=== PATIENT | male | born 1945 | race Hispanic/Latino ===

== ENCOUNTER 2020-03-26 01:25 | Inpatient (IN) | payer MEDICARE ==
[2020-03-26] VITALS (19 sets, daily range): BP systolic 94–135; BP diastolic 50–69
[~2020-03-26] VITALS: Ht 162.6 cm; Wt 68.1 kg
[2020-03-26] MEDS ORDERED: SODIUM CHLORIDE 0.9% 1000ML 1,000 ML IV STA (01:42)
[2020-03-26] MEDS ORDERED: ACETAMINOPHEN 325 MG TAB PO ONE (01:45)
[2020-03-26] MEDS ORDERED: ONDANSETRON HCL INJ 2MG/ML 2ML 2 MG/ML VIAL IV ONE (01:45)
[2020-03-26] MEDS ORDERED: CEFTRIAXONE SOD 1 GM VIAL IV ONE (01:45)
[2020-03-26] MEDS ORDERED: ACETAMINOPHEN500 MG PO (01:52)
[2020-03-26] MEDS ORDERED: CEFDINIR300 MG PO (01:52)
[2020-03-26] MEDS ORDERED: ZOFRAN4 MG PO (01:52)
[2020-03-26] MEDS ORDERED: CEFTRIAXONE SOD 1 GM/NS 50 ML 50 ML IV ONE ×2 (02:00)
[2020-03-26] MEDS ORDERED: SODIUM CHLORIDE 0.9% 1000ML 1,000 ML ONE (02:00)
[2020-03-26] MEDS ORDERED: DIPHENHYDRAMINE HCL INJ 50 MG/ML VIAL IV PRN (02:45)
[2020-03-26] MEDS ORDERED: ONDANSETRON HCL INJ 2MG/ML 2ML 2 MG/ML VIAL IV PRN (02:45)
[2020-03-26] MEDS ORDERED: FAMOTIDINE 20 MG TAB PO SCH (02:45)
[2020-03-26] MEDS ORDERED: ACETAMINOPHEN 325 MG TAB PO PRN (02:45)
[2020-03-26] MEDS ORDERED: ASPIRIN 81 MG CHEW TAB PO ONE (02:45)
[2020-03-26] MEDS ORDERED: ENOXAPARIN SODIUM INJ 100 MG/ML SYR SC ONE (03:00)
[2020-03-26] MEDS ORDERED: FAMOTIDINE 20 MG/2 ML VIAL IV ONE (03:01)
[2020-03-26] MEDS ORDERED: ASPIRIN 325 MG TAB ONE (03:01)
[2020-03-26] MEDS ORDERED: FAMOTIDINE 20 MG TAB PO ONE (03:15)
[2020-03-26] MEDS: METOPROLOL TARTRATE 25 MG TAB PO SCH ×2 (03:26→14:40)
[2020-03-26] MEDS ORDERED: ALLOPURINOL100 MG PO (03:45)
[2020-03-26] MEDS ORDERED: CARVEDILOL12.5 MG PO (03:45)
[2020-03-26] MEDS ORDERED: ATORVASTATIN CA20 MG PO (03:45)
[2020-03-26] MEDS ORDERED: XANAX0.5 MG PO (03:45)
[2020-03-26] MEDS ORDERED: LEXAPRO10 MG PO (03:45)
[2020-03-26] MEDS ORDERED: COLCRYS0.6 MG PO (03:45)
[2020-03-26] MEDS ORDERED: AMLODIPINE BESY10 MG PO (03:45)
[2020-03-26] MEDS: LACTATED RINGER'S 1,000 ML IV SCH ×3 (04:20→22:32)
[2020-03-26 04:42] LABS: BASOPHILS # (AUTO) 0.1 (0.0-0.1); BASOPHILS % 0.3 % (0.0-1.0); EOSINOPHILS # (AUTO) 0.1 (0.0-0.4); EOSINOPHILS % 0.6 % (0.0-6.0); HEMATOCRIT 36.7 % (38.2-49.6); HEMOGLOBIN 12.2 g/dL (14.0-18.0); LYMPHOCYTES # (AUTO) 1.1 (1.0-3.2); LYMPHOCYTES % 5.4 % (18.0-39.1); MEAN CORPUSCULAR HGB CONC 33.2 g/dL (31-35); MEAN CORPUSCULAR VOLUME 87.2 fL (81-99); MONOCYTES # (AUTO) 1.9 (0.2-0.8); MONOCYTES % 9.4 % (4.4-11.3); NEUTROPHILS # (AUTO) 17.2 (2.1-6.9); NEUTROPHILS % 83.5 % (38.7-80.0); PLATELET COUNT 125 x10e3/uL (140-360); RED BLOOD COUNT 4.21 x10e6/uL (4.3-5.7); RED CELL DISTRIBUTION WIDTH 13.6 % (11.7-14.4)
[2020-03-26 05:03] LABS: ALBUMIN 3.1 g/dL (3.5-5.0); ALBUMIN/GLOBULIN RATIO 0.8 (0.8-2.0); ANION GAP 17.2 mmol/L (8-16); CALCIUM 9.2 mg/dL (8.4-10.2); CREATININE, SERUM 2.34 mg/dL (0.72-1.25); POTASSIUM 3.2 mmol/L (3.5-5.1)
[2020-03-26 05:23] LABS: CREATINE KINASE MB 1.5 ng/mL (0-5.0)
[2020-03-26] MEDS: ASPIRIN 325 MG TAB EC PO SCH (08:01)
[2020-03-26] MEDS: PIPER-TAZ 3.375 GM 50 ML IV SCH ×2 (11:05→20:31)
[2020-03-26 11:07] LABS: CREATINE KINASE MB 1.6 ng/mL (0-5.0)
[2020-03-26] MEDS ORDERED: CEFTRIAXONE SOD 1 GM VIAL IV SCH (14:00)
[2020-03-26] MEDS ORDERED: POTASSIUM CHLORIDE 20 MEQ TAB CR PO ONE ×2 (15:00→19:20)
[2020-03-26 16:32] LABS: BASOPHILS # (AUTO) 0.1 (0.0-0.1); BASOPHILS % 0.3 % (0.0-1.0); EOSINOPHILS # (AUTO) 0.1 (0.0-0.4); EOSINOPHILS % 0.7 % (0.0-6.0); HEMATOCRIT 34.8 % (38.2-49.6); HEMOGLOBIN 11.7 g/dL (14.0-18.0); LYMPHOCYTES # (AUTO) 1.1 (1.0-3.2); LYMPHOCYTES % 7.3 % (18.0-39.1); MEAN CORPUSCULAR HEMOGLOBIN 29.3 pg (28-32); MEAN CORPUSCULAR HGB CONC 33.6 g/dL (31-35); MEAN CORPUSCULAR VOLUME 87.2 fL (81-99); MONOCYTES # (AUTO) 1.8 (0.2-0.8); MONOCYTES % 12.2 % (4.4-11.3); NEUTROPHILS # (AUTO) 11.4 (2.1-6.9); PLATELET COUNT 116 x10e3/uL (140-360); RED BLOOD COUNT 3.99 x10e6/uL (4.3-5.7); RED CELL DISTRIBUTION WIDTH 13.7 % (11.7-14.4)
[2020-03-26 16:59] LABS: CREATINE KINASE MB 1.3 ng/mL (0-5.0)
[2020-03-26 17:12] LABS: ANION GAP 14.2 mmol/L (8-16); CALCIUM 9.2 mg/dL (8.4-10.2); CREATININE, SERUM 2.28 mg/dL (0.72-1.25); POTASSIUM 3.2 mmol/L (3.5-5.1)
[2020-03-26] MEDS: SIMVASTATIN 40 MG TAB PO SCH (20:31)
[2020-03-26] MEDS ORDERED: ALPRAZOLAM 0.5 MG TAB PO PRN (21:45)
[2020-03-27] VITALS (8 sets, daily range): BP systolic 122–136; BP diastolic 67–75
[2020-03-27] MEDS: METOPROLOL TARTRATE 25 MG TAB PO SCH ×2 (04:45→17:40)
[2020-03-27 06:04] LABS: BASOPHILS # (AUTO) 0.1 (0.0-0.1); BASOPHILS % 0.5 % (0.0-1.0); EOSINOPHILS # (AUTO) 0.1 (0.0-0.4); EOSINOPHILS % 0.9 % (0.0-6.0); HEMATOCRIT 35.4 % (38.2-49.6); HEMOGLOBIN 11.7 g/dL (14.0-18.0); LYMPHOCYTES # (AUTO) 0.9 (1.0-3.2); LYMPHOCYTES % 8.5 % (18.0-39.1); MEAN CORPUSCULAR HGB CONC 33.1 g/dL (31-35); MEAN CORPUSCULAR VOLUME 87.6 fL (81-99); MONOCYTES # (AUTO) 1.3 (0.2-0.8); MONOCYTES % 12.1 % (4.4-11.3); NEUTROPHILS # (AUTO) 8.4 (2.1-6.9); NEUTROPHILS % 77.4 % (38.7-80.0); PLATELET COUNT 105 x10e3/uL (140-360); RED BLOOD COUNT 4.04 x10e6/uL (4.3-5.7); RED CELL DISTRIBUTION WIDTH 13.8 % (11.7-14.4)
[2020-03-27 06:37] LABS: ANION GAP 11.8 mmol/L (8-16); CALCIUM 9.6 mg/dL (8.4-10.2); CHOL/HDL RATIO 5.4 (3.9-4.7); CREATININE, SERUM 1.93 mg/dL (0.72-1.25); POTASSIUM 3.8 mmol/L (3.5-5.1)
[2020-03-27] MEDS: LACTATED RINGER'S 1,000 ML IV SCH (08:35)
[2020-03-27] MEDS: ASPIRIN 325 MG TAB EC PO SCH (08:35)
[2020-03-27] MEDS: PIPER-TAZ 3.375 GM 50 ML IV SCH ×2 (08:35→22:00)
[2020-03-27] MEDS: LACTOBACILLUS ACIDOPHILUS CAPSULE PO SCH ×2 (17:40→21:57)
[2020-03-27] MEDS ORDERED: ENOXAPARIN 30 MG/0.3 ML SYR SC SCH (20:45)
[2020-03-27] MEDS: SIMVASTATIN 40 MG TAB PO SCH (21:57)
[2020-03-28] VITALS: BP 134/68
[2020-03-28 04:00] VITALS: BP 132/71
[2020-03-28] MEDS: METOPROLOL TARTRATE 25 MG TAB PO SCH (05:20)
[2020-03-28 05:55] LABS: BASOPHILS % 0.5 % (0.0-1.0); EOSINOPHILS # (AUTO) 0.1 (0.0-0.4); EOSINOPHILS % 1.3 % (0.0-6.0); HEMATOCRIT 37.1 % (38.2-49.6); HEMOGLOBIN 12.1 g/dL (14.0-18.0); LYMPHOCYTES # (AUTO) 1.1 (1.0-3.2); LYMPHOCYTES % 12.6 % (18.0-39.1); MEAN CORPUSCULAR HEMOGLOBIN 28.9 pg (28-32); MEAN CORPUSCULAR HGB CONC 32.6 g/dL (31-35); MEAN CORPUSCULAR VOLUME 88.5 fL (81-99); MONOCYTES # (AUTO) 1.4 (0.2-0.8); MONOCYTES % 16.8 % (4.4-11.3); NEUTROPHILS # (AUTO) 5.7 (2.1-6.9); NEUTROPHILS % 68.4 % (38.7-80.0); PLATELET COUNT 133 x10e3/uL (140-360); RED BLOOD COUNT 4.19 x10e6/uL (4.3-5.7); RED CELL DISTRIBUTION WIDTH 13.8 % (11.7-14.4)
[2020-03-28 06:26] LABS: ANION GAP 12.6 mmol/L (8-16); CALCIUM 9.8 mg/dL (8.4-10.2); CREATININE, SERUM 1.78 mg/dL (0.72-1.25); POTASSIUM 3.6 mmol/L (3.5-5.1)
[2020-03-28 08:02] VITALS: BP 129/67
[2020-03-28 08:23] VITALS: BP 129/67
[2020-03-28] MEDS: ASPIRIN 325 MG TAB EC PO SCH (08:30)
[2020-03-28] MEDS: LACTOBACILLUS ACIDOPHILUS CAPSULE PO SCH (08:30)
[2020-03-28] MEDS: PIPER-TAZ 3.375 GM 50 ML IV SCH (08:30)
[2020-03-28 12:00] VITALS: BP 143/63
[2020-03-28] MEDS ORDERED: ONDANSETRON HCL 4 MG ORAL DISINTEGRATING TAB PO PRN (12:45)
[2020-03-28] MEDS ORDERED: LEVOFLOXACIN250 MG PO ×2 (14:58→14:59)
== END 2020-03-28 15:20 | disposition home or self-care (01) | DRG 728 ==
LOC: FSED 01:45 → ERHOLD 02:37 → ICU 04:06 → MED/SURG 22:31
PROVIDERS: ADMIT Internal Medicine; ATTEND Internal Medicine
DX: N41.0 Acute prostatitis (principal); N17.9 Acute kidney failure, unspecified; N10 Acute pyelonephritis; I12.9 Hypertensive chronic kidney disease with stage 1 through stage 4 chronic kidney disease, or unspecified chronic kidney disease; N18.9 Chronic kidney disease, unspecified; D69.6 Thrombocytopenia, unspecified; I35.0 Nonrheumatic aortic (valve) stenosis; Z08 Encounter for follow-up examination after completed treatment for malignant neoplasm; Z85.46 Personal history of malignant neoplasm of prostate; Z20.828 Contact with and (suspected) exposure to other viral communicable diseases; E78.5 Hyperlipidemia, unspecified
CPT/HCPCS: 36415; 71046; 80048; 80053; 80061; 81003; 82550; 82553; 83735; 84484; 85025; 87086; 93005; 93306; 96361; 99284; J0696; J1650; J2405; J2543; J7030; J7121; U0002

== ENCOUNTER 2021-12-29 20:52 | Inpatient (IN) | payer MEDICARE ==
[~2021-12-29] VITALS: Ht 167.6 cm; Wt 72.6 kg
[~2021-12-29 20:52] MED LIST: ACETAMINOPHEN500 MG PO; ALLOPURINOL100 MG PO; AMLODIPINE BESY10 MG PO; ATORVASTATIN CA20 MG PO; CARVEDILOL12.5 MG PO; CEFDINIR300 MG PO; COLCRYS0.6 MG PO; LEVOFLOXACIN250 MG PO; LEXAPRO10 MG PO; XANAX0.5 MG PO; ZOFRAN4 MG PO
[2021-12-29 22:04] LABS: BASOPHILS % 0.3 % (0.0-1.0); EOSINOPHILS % 0.1 % (0.0-6.0); HEMOGLOBIN 16.5 g/dL (14.0-18.0); LYMPHOCYTES # (AUTO) 0.5 (1.0-3.2); LYMPHOCYTES % 5.4 % (18.0-39.1); MEAN CORPUSCULAR HEMOGLOBIN 29.6 pg (28-32); MEAN CORPUSCULAR VOLUME 89.6 fL (81-99); MONOCYTES # (AUTO) 0.9 (0.2-0.8); MONOCYTES % 10.2 % (4.4-11.3); NEUTROPHILS # (AUTO) 7.3 (2.1-6.9); NEUTROPHILS % 83.8 % (38.7-80.0); PLATELET COUNT 92 x10e3/uL (140-360); RED BLOOD COUNT 5.58 x10e6/uL (4.3-5.7); RED CELL DISTRIBUTION WIDTH 13.5 % (11.7-14.4)
[2021-12-29] MEDS ORDERED: DILTIAZEM HCL 5 MG/ML 5 ML VIAL IV ONE (22:15)
[2021-12-29] MEDS ORDERED: LACTATED RINGER'S 1,000 ML INJ ONE (22:15)
[2021-12-29 22:24] LABS: ALBUMIN 3.9 g/dL (3.5-5.0); ALBUMIN/GLOBULIN RATIO 1.1 (0.8-2.0); ANION GAP 16.3 mmol/L (8-16); CALCIUM 9.9 mg/dL (8.4-10.2); CREATININE, SERUM 1.62 mg/dL (0.72-1.25); POTASSIUM 4.3 mmol/L (3.5-5.1)
[2021-12-29] MEDS ORDERED: ACETAMINOPHEN 325 MG TAB PO ONE (22:30)
[2021-12-29] MEDS ORDERED: ACETAMINOPHEN 325 MG TAB ONE (22:35)
[2021-12-29 23:08] LABS: CLARITY,URINE SL CLOUDY (CLEAR); COLOR,URINE YELLOW (YELLOW); KETONES,URINE NEGATIVE (NEGATIVE); LEUKOCYTE ESTERASE ,URINE NEGATIVE (NEGATIVE); NITRITE,URINE NEGATIVE (NEGATIVE); PROTEIN,URINE DIPSTICK >=300 (NEGATIVE); URINE UROBILINOGEN 0.2 mg/dL (0.2 - 1)
[2021-12-29 23:12] LABS: AMORPHOUS SEDIMENT,URINE MANY (FEW); BACTERIA,URINE FEW /HPF; EPITHELIAL CELLS,URINE FEW /LPF; WBC,URINE (MAN) 0-5 /HPF (0-5)
[2021-12-29] MEDS ORDERED: DILTIAZEM HCL ER 90MG CAPSULE PO SCH (23:30)
[2021-12-30] VITALS (7 sets, daily range): BP systolic 115–152; BP diastolic 75–88
[2021-12-30] MEDS ORDERED: FUROSEMIDE INJ 10 MG/ML 2 ML VIAL IV ONE (00:30)
[2021-12-30] MEDS ORDERED: ASPIRIN81 MG PO (03:44)
[2021-12-30 06:48] LABS: BASOPHILS % 0.2 % (0.0-1.0); HEMATOCRIT 50.2 % (38.2-49.6); HEMOGLOBIN 16.2 g/dL (14.0-18.0); LYMPHOCYTES # (AUTO) 0.8 (1.0-3.2); LYMPHOCYTES % 9.3 % (18.0-39.1); MEAN CORPUSCULAR HEMOGLOBIN 29.3 pg (28-32); MEAN CORPUSCULAR HGB CONC 32.3 g/dL (31-35); MEAN CORPUSCULAR VOLUME 90.9 fL (81-99); MONOCYTES # (AUTO) 1.1 (0.2-0.8); MONOCYTES % 12.9 % (4.4-11.3); NEUTROPHILS # (AUTO) 6.5 (2.1-6.9); NEUTROPHILS % 77.4 % (38.7-80.0); PLATELET COUNT 85 x10e3/uL (140-360); RED BLOOD COUNT 5.52 x10e6/uL (4.3-5.7); RED CELL DISTRIBUTION WIDTH 13.6 % (11.7-14.4)
[2021-12-30 07:11] LABS: ANION GAP 16.3 mmol/L (8-16); CALCIUM 9.8 mg/dL (8.4-10.2); CREATININE, SERUM 1.58 mg/dL (0.72-1.25); POTASSIUM 4.3 mmol/L (3.5-5.1)
[2021-12-30] MEDS ORDERED: SODIUM CHLORIDE 0.9% 250ML 250 ML ONE (09:18)
[2021-12-30] MEDS ORDERED: ONDANSETRON HCL INJ 2MG/ML 2ML 2 MG/ML VIAL IV PRN (09:30)
[2021-12-30] MEDS ORDERED: ACETAMINOPHEN 325 MG TAB PO PRN (09:30)
[2021-12-30] MEDS: ASPIRIN 81 MG CHEW TAB PO SCH (11:03)
[2021-12-30] MEDS: ESCITALOPRAM OXALATE 10 MG TAB PO SCH (11:03)
[2021-12-30] MEDS: LACTOBACILLUS ACIDOPHILUS CAPSULE PO SCH ×2 (11:03→17:22)
[2021-12-30] MEDS: ALLOPURINOL 100 MG TAB PO SCH (11:03)
[2021-12-30] MEDS: AMLODIPINE BESYLATE 10 MG TAB PO SCH (11:04)
[2021-12-30] MEDS: FUROSEMIDE INJ 10 MG/ML 4 ML VIAL IV SCH ×2 (11:21→21:42)
[2021-12-30] MEDS: ALBUTEROL/IPRATROPIUM 3 ML NEB NEB SCH ×4 (15:00→23:50)
[2021-12-30] MEDS ORDERED: CARVEDILOL 12.5 MG TAB PO SCH (17:00)
[2021-12-30] MEDS: APIXABAN 5 MG TABLET PO SCH (17:22)
[2021-12-30] MEDS ORDERED: DILTIAZEM HCL ER 90MG CAPSULE PO SCH (21:00)
[2021-12-30] MEDS: ATORVASTATIN 20 MG TAB PO SCH (21:42)
[2021-12-31] VITALS (8 sets, daily range): BP systolic 114–139; BP diastolic 74–90
[2021-12-31] MEDS: ALBUTEROL/IPRATROPIUM 3 ML NEB NEB SCH ×5 (03:05→19:35)
[2021-12-31] MEDS ORDERED: EPINEPHRINE 2.25% INH NEBU SOL 0.5 ML VIAL INH STA (03:21)
[2021-12-31 05:34] LABS: BASOPHILS % 0.4 % (0.0-1.0); EOSINOPHILS % 0.1 % (0.0-6.0); HEMOGLOBIN 15.5 g/dL (14.0-18.0); LYMPHOCYTES # (AUTO) 0.8 (1.0-3.2); LYMPHOCYTES % 11.6 % (18.0-39.1); MEAN CORPUSCULAR HEMOGLOBIN 29.3 pg (28-32); MEAN CORPUSCULAR HGB CONC 31.6 g/dL (31-35); MEAN CORPUSCULAR VOLUME 92.6 fL (81-99); MONOCYTES % 15.3 % (4.4-11.3); NEUTROPHILS # (AUTO) 4.9 (2.1-6.9); NEUTROPHILS % 72.3 % (38.7-80.0); PLATELET COUNT 75 x10e3/uL (140-360); RED BLOOD COUNT 5.29 x10e6/uL (4.3-5.7); RED CELL DISTRIBUTION WIDTH 13.7 % (11.7-14.4)
[2021-12-31 05:55] LABS: ANION GAP 17.1 mmol/L (8-16); CALCIUM 9.6 mg/dL (8.4-10.2); CREATININE, SERUM 1.83 mg/dL (0.72-1.25); POTASSIUM 4.1 mmol/L (3.5-5.1)
[2021-12-31] MEDS: APIXABAN 5 MG TABLET PO SCH ×2 (09:43→16:30)
[2021-12-31] MEDS: AMLODIPINE BESYLATE 10 MG TAB PO SCH (09:44)
[2021-12-31] MEDS: CARVEDILOL 12.5 MG TAB PO SCH ×2 (09:45→16:28)
[2021-12-31] MEDS: ALLOPURINOL 100 MG TAB PO SCH (09:45)
[2021-12-31] MEDS: ASPIRIN 81 MG CHEW TAB PO SCH (09:45)
[2021-12-31] MEDS: ESCITALOPRAM OXALATE 10 MG TAB PO SCH (09:45)
[2021-12-31] MEDS: FUROSEMIDE INJ 10 MG/ML 4 ML VIAL IV SCH ×2 (09:45→20:23)
[2021-12-31] MEDS: LACTOBACILLUS ACIDOPHILUS CAPSULE PO SCH ×2 (09:45→16:30)
[2021-12-31] MEDS ORDERED: METHYLPREDNISOLONE SOD SUCC 40 MG/ML VIAL 1ML IV ONE (10:30)
[2021-12-31] MEDS ORDERED: ONDANSETRON HCL 4 MG ORAL DISINTEGRATING TAB PO PRN (10:45)
[2021-12-31] MEDS: AMIODARONE HCL 200 MG TAB PO SCH (16:30)
[2021-12-31] MEDS: ATORVASTATIN 20 MG TAB PO SCH (20:23)
[2022-01-01] VITALS: BP 126/79
[2022-01-01] MEDS: ALBUTEROL/IPRATROPIUM 3 ML NEB NEB SCH ×2 (03:45→07:50)
[2022-01-01 04:00] VITALS: BP 133/90
[2022-01-01] MEDS ORDERED: FUROSEMIDE 40 MG TAB PO SCH (06:00)
[2022-01-01 06:18] LABS: ANION GAP 17.8 mmol/L (8-16); CREATININE, SERUM 1.98 mg/dL (0.72-1.25); POTASSIUM 3.8 mmol/L (3.5-5.1)
[2022-01-01 08:28] VITALS: BP 148/92
[2022-01-01] MEDS: ALLOPURINOL 100 MG TAB PO SCH (08:56)
[2022-01-01] MEDS: CARVEDILOL 12.5 MG TAB PO SCH (08:56)
[2022-01-01] MEDS: AMIODARONE HCL 200 MG TAB PO SCH (08:56)
[2022-01-01] MEDS: LACTOBACILLUS ACIDOPHILUS CAPSULE PO SCH (08:56)
[2022-01-01] MEDS: ASPIRIN 81 MG CHEW TAB PO SCH (08:56)
[2022-01-01] MEDS: ESCITALOPRAM OXALATE 10 MG TAB PO SCH (08:57)
[2022-01-01] MEDS: AMLODIPINE BESYLATE 10 MG TAB PO SCH (08:57)
[2022-01-01] MEDS: APIXABAN 5 MG TABLET PO SCH (08:57)
[2022-01-01 11:22] VITALS: BP 148/92
[2022-01-01] MEDS ORDERED: FUROSEMIDE40 MG PO (11:30)
[2022-01-01] MEDS ORDERED: AMIODARONE HCL200 MG PO (11:30)
[2022-01-01] MEDS ORDERED: PROVENTIL HFA6.7 GM INH (11:30)
[2022-01-01] MEDS ORDERED: ELIQUIS2.5 MG PO (11:30)
[2022-01-01 11:40] VITALS: BP 126/77
[2022-01-01] MEDS ORDERED: AZITHROMYCIN500 MG PO (11:43)
[2022-01-01] MEDS ORDERED: APIXAB 2.5 MG TABLET PO SCH (17:00)
[2022-01-02] MEDS ORDERED: FUROSEMIDE 40 MG TAB PO SCH (09:00)
== END 2022-01-01 13:02 | disposition home or self-care (01) | DRG 291 ==
LOC: ER 21:18 → ERHOLD 23:38 → MED/SURG2 12-30 03:12 → OBSVTOIN 12-31 11:20
PROVIDERS: ADMIT Internal Medicine; ATTEND Internal Medicine
DX: I13.0 Hypertensive heart and chronic kidney disease with heart failure and stage 1 through stage 4 chronic kidney disease, or unspecified chronic kidney disease (principal); I50.33 Acute on chronic diastolic (congestive) heart failure; J44.0 Chronic obstructive pulmonary disease with (acute) lower respiratory infection; J44.1 Chronic obstructive pulmonary disease with (acute) exacerbation; N18.30 Chronic kidney disease, stage 3 unspecified; I48.91 Unspecified atrial fibrillation; Z79.01 Long term (current) use of anticoagulants; Z20.822 Contact with and (suspected) exposure to COVID-19; E78.5 Hyperlipidemia, unspecified; I35.0 Nonrheumatic aortic (valve) stenosis; Z85.46 Personal history of malignant neoplasm of prostate; J20.9 Acute bronchitis, unspecified
CPT/HCPCS: 36415; 71045; 71250; 80048; 80053; 81001; 83605; 83880; 84443; 84484; 85025; 87040; 87086; 93005; 93306; 94799; 96361; 99284; G0378; J0692; J1940; J2543; J2920; J7050; J7121